=== PATIENT | female | born 1985 | race Caucasian/White ===

== ENCOUNTER 2018-05-25 17:44 | Emergency (ER) | payer OTHER ==
[~2018-05-25] VITALS: Ht 157.5 cm; Wt 81.7 kg
[2018-05-25 17:46] VITALS: BP 123/81
[2018-05-25] MEDS ORDERED: IBUPROFEN 200200 M1 (17:49)
[2018-05-25] MEDS ORDERED: MOBIC15 MG PO (18:51)
== END 2018-05-25 19:17 | disposition home or self-care (01) ==
LOC: ER 17:44
DX: S92.415A Nondisplaced fracture of proximal phalanx of left great toe, initial encounter for closed fracture (principal); W22.8XXA Striking against or struck by other objects, initial encounter; Y92.89 Other specified places as the place of occurrence of the external cause; Y93.89 Activity, other specified; Y99.8 Other external cause status

== ENCOUNTER 2019-08-07 11:23 | Emergency (ER) | payer OTHER ==
[~2019-08-07] VITALS: Ht 154.9 cm; Wt 86.2 kg
[~2019-08-07 11:23] MED LIST: IBUPROFEN 200200 M1; MOBIC15 MG PO
[2019-08-07] MEDS ORDERED: NORCO 5-325 TA1 EAC1 PO (12:33)
== END 2019-08-07 12:35 | disposition home or self-care (01) ==
LOC: ER 11:23
DX: S82.61XA Displaced fracture of lateral malleolus of right fibula, initial encounter for closed fracture (principal); W10.8XXA Fall (on) (from) other stairs and steps, initial encounter; Y93.01 Activity, walking, marching and hiking; Y92.89 Other specified places as the place of occurrence of the external cause; Y99.8 Other external cause status